=== PATIENT | female | born 1950 | race Caucasian/White ===

== ENCOUNTER 2019-11-01 08:19 | Outpatient (CLI) | payer MEDICAID, SELFPAY ==
--- NOTE | 2019-11-01 08:23 | CT_ITS ---
WS: [id number] CT LUNG CANCER SCREENING DLP: 51.55 mGy.cm DIvol: 1.51 mGy CLINICAL INFORMATION SCREENING VISIT: Baseline COMPARISON: None available. FINDINGS Diagnostic quality: Satisfactory Comments: None. Lung Nodules: Heart solid nodule measuring 8 mm LEFT upper lobe, image 25 series 400. Additional scat tered irregular opacifications in the LEFT upper lobe. There is an additional subsolid nodule with ir regular borders measuring 15 mm image 27 of series 400 in the LEFT upper lobe. This nodule is irregul ar but continuous with a bandlike area of atelectasis in the periphery of the LEFT upper lobe. Lungs: Lungs are mildly hyperinflated. There are multifocal areas of bandlike opacifications with adj acent nodularity and atelectasis involving the LEFT upper and lower lobes, RIGHT middle lobe and RIGH T lower lobe. Heart: Mild scattered coronary artery calcification in the LEFT anterior descending and circumflex. Other findings: Soft tissue mass in the anterior mediastinum measures 12 x 14 mm. Additional smaller lymph nodes in the mediastinum. Some of these lymph nodes contain calcifications. Moderate size hiata l hernia. Prior cholecystectomy. CT/CT lung screening [id number] IMPRESSION: LUNG-RADS: 4B-Suspicious FOLLOW UP: Chest CT with or without contrast 1. Multi lobar abnormal opacifications. Some of these are subsolid nodules and others areas of atelectasis and airspace disease. There is an additional anter ior mediastinal mass which may be an abnormal lymph node or thymus. Recommend c hest CT of IV contrast at this time for further evaluation. 2. Moderate coronary artery atherosclerosis. 3. Prior cholecystectomy. 4. Moderate hiatal hernia.
== END 2019-11-01 08:20 | disposition home or self-care (01) ==
LOC: CT 08:20
PROVIDERS: Family Provider Family Medicine; Visit Provider Family Medicine
DX: Z12.2 Encounter for screening for malignant neoplasm of respiratory organs (principal); Z87.891 Personal history of nicotine dependence; I25.10 Atherosclerotic heart disease of native coronary artery without angina pectoris; K44.9 Diaphragmatic hernia without obstruction or gangrene; Z90.49 Acquired absence of other specified parts of digestive tract
CPT/HCPCS: G0297

== ENCOUNTER 2019-12-20 13:45 | Outpatient (CLI) | payer MEDICAID, SELFPAY ==
--- NOTE | 2019-12-20 13:30 | CT_ITS ---
WS: [id number] CT CHEST TECHNIQUE: Noncontrast CT of the chest with coronal and sagittal reformatted images. CLINICAL INFORMATION: Pulmonary nodule COMPARISON: CT November 01, 2019 DLP: 1056.[address] scans at [facility] use at least one of these dose optimization techniques: automat ed exposure control; mA and/or kV adjustment per patient size (includes targeted exams where dose is matched to clinical indication); or iterative reconstruction. FINDINGS: Moderate chronic emphysematous changes. Parenchymal scarring in the upper lobes. Previously described hazy groundglass infiltrates have improved compared to the prior examination. Left hilar infiltrates anteriorly have a tree-in-bud configuration and can be seen with bronchiolitis. Subsegmental atelect asis right middle lobe and left lower lobe. Scattered small calcified granulomas. 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 Normal thyroid gland. No mediastinal or hilar lymphadenopathy. Vascular calcification including coronary. Cholecystectomy clips. Adrenal glands are normal. Splenic granulomas. Moderate esophageal hiatal javier ia. No axillary lymphadenopathy. Moderate thoracic kyphosis. Anterior wedging in the mid thoracic spi ne with a few Schmorl's nodes. CT/CT chest wo con [id number] IMPRESSION: 1. Previously described hazy pulmonary infiltrates some of the tree-in-bud con figuration have improved since the prior examination with some residual areas o f atelectasis and slightly hazy groundglass infiltrates in the left upper lobe and left lower lobe likely infectious or inflammatory, but improved. No consoli dation or focal pneumonia. 2. Subsegmental atelectasis in the left lower lobe and right middle lobe. 3. 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 Moderate esophageal hiatal hernia. 5. Prior cholecystectomy.
== END 2019-12-20 13:46 | disposition home or self-care (01) ==
LOC: RADWPI 13:47
PROVIDERS: Family Provider Family Medicine; PCP Family Medicine; Visit Provider Internal Medicine Critical Care Medicine
DX: R91.1 Solitary pulmonary nodule (principal); R91.8 Other nonspecific abnormal finding of lung field; J98.11 Atelectasis; K44.9 Diaphragmatic hernia without obstruction or gangrene; Z90.49 Acquired absence of other specified parts of digestive tract
CPT/HCPCS: 71250

== ENCOUNTER 2020-01-18 11:27 | Outpatient (CLI) | payer MEDICAID, SELFPAY ==
--- NOTE | 2020-01-18 11:54 | MM_ITS ---
WS: [id number] BILATERAL SCREENING DIGITAL MAMMOGRAM WITH CAD HISTORY: SCREENING COMPARISON: None available. Bilateral CC and MLO views submitted. Computer aided detection analyzed. Breast composition: There are scattered areas of fibroglandular density. No suspicious masses, microc alcifications or architectural distortion. Benign calcifications within each breast. MM/[place] [id number] IMPRESSION: BI-RADS: 2-Benign FOLLOW UP: 1 Year Follow-up
== END 2020-01-18 11:28 | disposition home or self-care (01) ==
LOC: RADSHAW 11:29
PROVIDERS: PCP Family Medicine; Visit Provider Family Medicine
DX: Z12.31 Encounter for screening mammogram for malignant neoplasm of breast (principal)
CPT/HCPCS: 77067

== ENCOUNTER 2020-02-22 12:40 | Outpatient (CLI) | payer MEDICAID, SELFPAY ==
--- NOTE | 2020-02-22 09:43 | PFTS_ITS ---
Date of Study:02/22/20 Date of Dictation: MECHANICS: Forced vital capacity (FVC) is reduced. Forced expiratory volume in one second (FEV1) is reduced. FEV1/FVC is reduced. FLOW VOLUME LOOP: Reduced flow at all lung volumes with significant scooping. LUNG VOLUMES: Total lung capacity (TLC) is elevated. Residual volume (RV) is elevated. DIFFUSING CAPACITY FOR CARBON MONOXIDE: Normal. INTERPRETATION: The pulmonary function tests are consistent with moderate obstruction. Lung volumes are consistent with hyperinflation and air trapping. Gas exchange (DLCO) is normal. MTDD
[2020-02-22 13:35] VITALS: O2SAT 93; O2SAT 96
== END 2020-02-22 12:41 | disposition home or self-care (01) ==
PROVIDERS: PCP Family Medicine; Visit Provider Internal Medicine Critical Care Medicine
DX: J44.9 Chronic obstructive pulmonary disease, unspecified (principal)
CPT/HCPCS: 94060; 94726; 94729; J7611

== ENCOUNTER 2021-02-11 07:38 | Outpatient (CLI) | payer MEDICAID, SELFPAY ==
--- NOTE | 2021-02-11 07:51 | CT_ITS ---
WS: [id number] LDCT LUNG CANCER SCREENING HISTORY: HX OF TOBACCO USE TECHNIQUE: Axial imaging performed from the apices to 1 cm below the costophrenic angles. Coronal and sagittal reformats are submitted with axial MIP series. All CT scans at [facility] use at least one of these dose optimization techniques: automated exposure control; mA and/or kV adjustment per patient size (includes targeted exams where dose is matched to clinical indication); or iterativ e reconstruction. DLP: 52.6 mGy.cm DIvol: 1.58 mGy COMPARISON: 12/20/2019 and 11/01/2019 Diagnostic quality: Satisfactory Lung Nodules: No pulmonary nodule, groundglass attenuation or endobronchial lesions are identified. Lungs: Moderate hyperexpansion. Linear areas of subsegmental atelectasis in the LEFT lower lobe and R IGHT upper and RIGHT middle lobes. Overall significant improvement in aeration as compared to 12/20/19 20 and 11/01/2019. Heart: Other findings: Moderate atherosclerosis aorta. No aneurysm. Again noted is a lobulated mass in the a nterior mediastinum with conforms to the space measuring 15 x 22 mm. Probably representing a finding cyst. No increase in size. Mild coronary artery atherosclerosis. Moderate-sized hiatal hernia is stab le. Prior cholecystectomy. Increase in thoracic kyphosis. Mild anterior wedging of T5, T6, T7 and T8. CT/CT lung screening [id number] IMPRESSION: LUNG-RADS: 1-Negative FOLLOW UP: 12 Month: Continue annual screening with LDCT OTHER FINDINGS (S MODIFIER): None.
== END 2021-02-11 07:39 | disposition home or self-care (01) ==
LOC: RAD 07:41
PROVIDERS: PCP Family Medicine; Visit Provider Family Medicine
DX: Z12.2 Encounter for screening for malignant neoplasm of respiratory organs (principal); Z87.891 Personal history of nicotine dependence; I70.0 Atherosclerosis of aorta; K44.9 Diaphragmatic hernia without obstruction or gangrene; I25.10 Atherosclerotic heart disease of native coronary artery without angina pectoris; M48.54XA Collapsed vertebra, not elsewhere classified, thoracic region, initial encounter for fracture; X58.XXXA Exposure to other specified factors, initial encounter; Z90.49 Acquired absence of other specified parts of digestive tract; M40.294 Other kyphosis, thoracic region
CPT/HCPCS: 71271

== ENCOUNTER 2021-02-15 14:28 | Outpatient (CLI) | payer MEDICAID, SELFPAY ==
--- NOTE | 2021-02-15 14:38 | XR_ITS ---
WS: [id number] SCREENING DEXA SCAN [facility] CLINICAL INFORMATION: POST MENOPAUSAL COMPARISON: 02 02,018 FINDINGS: The L1-L4 bone mineral density measures 1.146 g/cm2. This corresponds to a T score score of -0.3 and Z score of 0.5. Left femoral neck bone mineral density measures 0.760 g/cm2. This corresponds to a T score of -2.0 an d Z score of -1.1. Right femoral neck bone mineral density measures 0.773 g/cm2. This corresponds to a T score -1.9of an d Z score of -1.0. Mean femoral neck bone mineral density measures 0.766 g/cm2. This corresponds to a T score of -1.9 an d Z score of -1.0. XR/XR DEXA axial skeleton* [id number] IMPRESSION: Normal bone mineralization lumbar spine. Osteopenia femoral necks Patient's FRAX calculated 10 year probability for major osteoporotic fracture i s 22.6 % and osteoporotic hip fracture is 6.2%.
--- NOTE | 2021-02-15 15:04 | MM_ITS ---
WS: [id number] BILATERAL SCREENING DIGITAL MAMMOGRAM WITH CAD HISTORY: SCREENING COMPARISON: 01/18/2020, 01/20/2017 Bilateral CC and MLO views submitted. Computer aided detection analyzed. Breast composition: There are scattered areas of fibroglandular density. No suspicious masses, microc alcifications or architectural distortion. Benign scattered calcifications in each breast. MM/[place] [id number] IMPRESSION: BI-RADS: 2-Benign FOLLOW UP: 1 Year Follow-up
== END 2021-02-15 14:29 | disposition home or self-care (01) ==
LOC: RADSHAW 14:32
PROVIDERS: PCP Family Medicine; Visit Provider Family Medicine
DX: Z12.31 Encounter for screening mammogram for malignant neoplasm of breast (principal); Z78.0 Asymptomatic menopausal state
CPT/HCPCS: 77067; 77080